=== PATIENT | female | born 1995 | race American Indian/Alaskan Native ===

== ENCOUNTER 2018-09-09 20:50 | Emergency (ER) | payer BC ==
[2018-09-09 21:02] VITALS: BP 128/80
--- NOTE | 2018-09-09 21:03 | Emergency Department Report ---
Chief Complaint: Chest Pain Stated Complaint: SOB HEAVY CHEST COUGH Time Seen by Provider: 09/09/18 20:58 - HPI History of Present Illness: Pt is c/o cough for approximately a month clear sputum production chest discomfort when coughing, rhinorrhea, and congestion, watery eyes no fever (+) seasonal allergies no PMHx VSS MSE complete MSE screening note: Focused history and physical exam performed. Due to findings the following was ordered: CXR ED Disposition for MSE Condition: Stable
[2018-09-09] MEDS ORDERED: PROVENTIL IH ONE (21:33)
[2018-09-09] MEDS ORDERED: IBUPROFEN PO ONE (21:33)
[2018-09-09] MEDS ORDERED: DECADRON IM ONE (21:33)
--- NOTE | 2018-09-09 21:33 | XRay Report ---
XR CHEST ROUTINE 2V CLINICAL INDICATION: Female, 23 years of age. cough COMPARISON: None available. Findings: Frontal and lateral views of the chest were obtained. Cardiac silhouette is within normal limits. No focal consolidation or effusion. No pneumothorax. Visualized bony structures are grossly intact. IMPRESSION: No acute findings. This document is electronically signed by Jess Cedillo DO., September 09 2018 09:31:08 PM ET
--- NOTE | 2018-09-09 21:39 | Emergency Department Report ---
Upper Respiratory HPI - HPI Chief Complaint: Chest Pain Stated Complaint: SOB HEAVY CHEST COUGH Time Seen by Provider: 09/09/18 20:58 Duration: 1 month URI Symptoms: Rhinorrhea: Yes, Sore Throat: Yes, Ear Pain: No, Cough: Yes, Shortness of Breath: No, Sick Contacts: No, Unable to Take Fluids: No, Urine Output Abnormal: No, Listless Behavior: No Other History: pt presents head congestion cough productive clear yellow noc wheezing x 1 months hx of bronchitis out of medications pt denies fever or chills no n/v no sob back pain no dizziness no light headedness - Home Meds and Allergies Home Medications: Previous Rx's Medication Instructions Recorded Last Taken Type ALBUTEROL Inhaler(NF) [VENTOLIN 2 puff IH Q4H PRN #1 inha 09/09/18 Unknown Rx Inhaler(NF)] Azithromycin [Zithromax Z-LATRELL] 250 mg PO DAILY #6 tab 09/09/18 Unknown Rx Benzonatate [Tessalon Perle] 100 mg PO TID PRN #30 capsule 09/09/18 Unknown Rx Ibuprofen 800 mg PO TID PRN #30 tablet 09/09/18 Unknown Rx Allergies/Adverse Reactions: Allergies Allergy/AdvReac Type Severity Reaction Status Date / Time No Known Allergies Allergy Verified 09/09/18 20:53 ED Review of Systems ROS: Stated complaint: SOB HEAVY CHEST COUGH Other details as noted in HPI Constitutional: denies: chills, fever Eyes: denies: eye pain, eye discharge, vision change ENT: throat pain, congestion. denies: ear pain Respiratory: cough, wheezing Cardiovascular: denies: chest pain, palpitations Endocrine: no symptoms reported Gastrointestinal: denies: abdominal pain, nausea, diarrhea Genitourinary: denies: urgency, dysuria, discharge Musculoskeletal: denies: back pain, joint swelling, arthralgia Skin: denies: rash, lesions Neurological: denies: headache, weakness, paresthesias Psychiatric: denies: anxiety, depression Hematological/Lymphatic: denies: easy bleeding, easy bruising ED Past Medical Hx - Past Medical History Previous Medical History?: No - Surgical History Past Surgical History?: No - Social History Smoking Status: Never Smoker Substance Use Type: Alcohol - Medications Home Medications: Home Medications Medication Instructions Recorded Confirmed Last Taken Type ALBUTEROL Inhaler(NF) [VENTOLIN 2 puff IH Q4H PRN #1 inha 09/09/18 Unknown Rx Inhaler(NF)] Azithromycin [Zithromax Z-LATRELL] 250 mg PO DAILY #6 tab 09/09/18 Unknown Rx Benzonatate [Tessalon Perle] 100 mg PO TID PRN #30 capsule 09/09/18 Unknown Rx Ibuprofen 800 mg PO TID PRN #30 tablet 09/09/18 Unknown Rx ED Bronchiolitis Physical Exam - Exam General: Vital signs noted. No distress. Alert and acting appropriately. HEENT: Yes Pharyngeal Erythema, Yes Rhinorrhea (clear ), No Conjuctival Injection, No Dry Mucous Membranes Ear: Neither TM Bulge, Neither TM Erythema, Neither EAC Discharge Neck: No Adenopathy, No Rigidity Lungs: Yes Good Air Exchange, Yes Wheezes, Yes Cough, No Clear Lung Sounds, No Stridor, No Nasal Flaring, No Retractions, No Use of Accessory Muscles Heart: Yes Regular, No Murmur Abdomen: Yes Normal Bowel Sounds, No Tenderness, No Peritoneal Signs Skin: No Rash, No Eczema Neurologic: Alert and oriented, no deficits. Musculoskeletal: Unremarkable. ED Bronchiolitis Tests - Testing Testing: CXR: Normal/Negative Treatments - Treaments Treatment: Improved Albuterol (decadron, ibuprofen, ) ED Physical Exam - General Limitations: No Limitations General appearance: alert, in no apparent distress - Head Head exam: Present: atraumatic, normocephalic - Eye Eye exam: Present: normal appearance, PERRL, EOMI Pupils: Present: normal accommodation - ENT ENT exam: Present: normal orophraynx, mucous membranes moist, TM's normal bilaterally, normal external ear exam - Expanded ENT Exam Expanded Ear exam: Present: normal external inspection Mouth exam: Absent: trismus Throat exam: Positive: normal inspection, other (uvula midline no stridor no lesion no exudate ). Negative: tonsillar erythema, tonsillomegaly, tonsillar exudate, R peritonsillar mass, L peritonsillar mass - Neck Neck exam: Present: normal inspection, full ROM. Absent: tenderness, meningismus, lymphadenopathy, thyromegaly - Respiratory Respiratory exam: Present: normal lung sounds bilaterally, wheezes (mild exp wheezing bilat anterior lobes ). Absent: respiratory distress, stridor, chest wall tenderness, accessory muscle use, decreased breath sounds, prolonged expiratory - Cardiovascular Cardiovascular Exam: Present: regular rate, normal rhythm, normal heart sounds. Absent: systolic murmur, diastolic murmur, rubs, gallop - GI/Abdominal GI/Abdominal exam: Present: soft, normal bowel sounds. Absent: tenderness, bruit, hernia - Rectal Rectal exam: Present: deferred - Extremities Exam Extremities exam: Present: normal inspection - Back Exam Back exam: Present: normal inspection, full ROM. Absent: tenderness, CVA tenderness (R), CVA tenderness (L), muscle spasm, paraspinal tenderness, vertebral tenderness, rash noted - Neurological Exam Neurological exam: Present: alert, oriented X3 - Psychiatric Psychiatric exam: Present: normal affect, normal mood - Skin Skin exam: Present: warm, dry, intact, normal color. Absent: rash ED Course Vital Signs 09/09/18 20:57 Temperature 98.6 F Pulse Rate 73 Respiratory 18 Rate Blood Pressure 128/80 O2 Sat by Pulse 100 Oximetry ED Medical Decision Making - Radiology Data Radiology results: image reviewed no infiltrates no opacities - Medical Decision Making this is bronchitis with cough for past month, cxr normal will tx cough with zpack plan: albuterol inhaler, tessalon pearls, ibuprofen, zpack , pt will follow up with pcp in 2-3 days return to ed if symptoms worsen, pt verbalized agreement and understanding of same. Critical care attestation.: If time is entered above; I have spent that time in minutes in the direct care of this critically ill patient, excluding procedure time. ED Disposition Clinical Impression: Bronchitis Disposition: DC-01 TO HOME OR SELFCARE Is pt being admited?: No Does the pt Need Aspirin: No Condition: Stable Instructions: Chronic Bronchitis (ED), Acute Bronchitis (ED), Upper Respiratory Infection (ED) Prescriptions: ALBUTEROL Inhaler(NF) [VENTOLIN Inhaler(NF)] 2 puff IH Q4H PRN #1 inha PRN Reason: shortness or breath wheezing Azithromycin [Zithromax Z-LATRELL] 250 mg PO DAILY #6 tab Benzonatate [Tessalon Perle] 100 mg PO TID PRN #30 capsule PRN Reason: Cough Ibuprofen 800 mg PO TID PRN #30 tablet PRN Reason: pain fever Referrals: PRIMARY CARE, [Primary Care Provider] - 3-5 Days Forms: Work/School Release Form(ED) Time of Disposition: 21:47
== END 2018-09-09 22:42 | disposition home or self-care (01) ==
LOC: ED 20:50
DX: J40 Bronchitis, not specified as acute or chronic (principal)
CPT/HCPCS: 71046; 96372; 99283; J1100

== ENCOUNTER 2020-08-28 08:35 | Emergency (ER) | payer BC ==
[2020-08-28 08:49] VITALS: BP 127/59
--- NOTE | 2020-08-28 08:58 | Emergency Department Report ---
ED General Adult HPI - General Chief complaint: Rectal Pain Stated complaint: POSSIBLE HEMPHOIDS Time Seen by Provider: 08/28/20 08:54 Source: patient Mode of arrival: Ambulatory Limitations: No Limitations - History of Present Illness Initial comments: 25-year-old female with no significant past medical history presenting with chief complaint of rectal pain. She states this began gradually over the past week and has worsened. She states that now when she has a bowel movement she notices a small amount of bleeding on the stool and on the toilet paper. Denies any significant abdominal pain, fevers, nausea, vomiting, anal trauma. Denies any prior history of similar. Pain is severe at times. States she has been trying to not have a bowel movement to avoid the pain. - Related Data Previous Rx's Medication Instructions Recorded Last Taken Type ALBUTEROL Inhaler(NF) [VENTOLIN 2 puff IH Q4H PRN #1 inha 09/09/18 Unknown Rx Inhaler(NF)] Azithromycin [Zithromax Z-LATRELL] 250 mg PO DAILY #6 tab 09/09/18 Unknown Rx Benzonatate [Tessalon Perle] 100 mg PO TID PRN #30 capsule 09/09/18 Unknown Rx Ibuprofen [Ibuprofen 800] 800 mg PO TID PRN #30 tablet 09/09/18 Unknown Rx Sulfamethoxazole/Trimethoprim 1 each PO BID #14 tablet 03/30/20 Unknown Rx [Bactrim DS TAB] Docusate Sodium [Colace] 100 mg PO BID #20 capsule 08/28/20 Unknown Rx Hydrocortisone [Anucort-HC SUPPOS] 25 mg RC BID #14 supp.rect 08/28/20 Unknown Rx traMADoL [Ultram 50 MG tab] 50 mg PO Q6HR PRN #10 tablet 08/28/20 Unknown Rx Allergies Allergy/AdvReac Type Severity Reaction Status Date / Time No Known Allergies Allergy Verified 09/09/18 20:53 ED Review of Systems ROS: Stated complaint: POSSIBLE HEMPHOIDS Other details as noted in HPI Comment: All other systems reviewed and negative Gastrointestinal: as per HPI ED Past Medical Hx - Past Medical History Previous Medical History?: Yes Additional medical history: bronchitis - Surgical History Past Surgical History?: No - Social History Smoking Status: Never Smoker Substance Use Type: Marijuana - Medications Home Medications: Home Medications Medication Instructions Recorded Confirmed Last Taken Type ALBUTEROL Inhaler(NF) [VENTOLIN 2 puff IH Q4H PRN #1 inha 09/09/18 Unknown Rx Inhaler(NF)] Azithromycin [Zithromax Z-LATRELL] 250 mg PO DAILY #6 tab 09/09/18 Unknown Rx Benzonatate [Tessalon Perle] 100 mg PO TID PRN #30 capsule 09/09/18 Unknown Rx Ibuprofen [Ibuprofen 800] 800 mg PO TID PRN #30 tablet 09/09/18 Unknown Rx Sulfamethoxazole/Trimethoprim 1 each PO BID #14 tablet 03/30/20 Unknown Rx [Bactrim DS TAB] Docusate Sodium [Colace] 100 mg PO BID #20 capsule 08/28/20 Unknown Rx Hydrocortisone [Anucort-HC SUPPOS] 25 mg RC BID #14 supp.rect 08/28/20 Unknown Rx traMADoL [Ultram 50 MG tab] 50 mg PO Q6HR PRN #10 tablet 08/28/20 Unknown Rx ED Physical Exam - General Limitations: No Limitations General appearance: alert, in no apparent distress - Head Head exam: Present: atraumatic, normocephalic - Eye Eye exam: Present: normal appearance - ENT ENT exam: Present: mucous membranes moist - Neck Neck exam: Present: normal inspection - Respiratory Respiratory exam: Present: normal lung sounds bilaterally. Absent: respiratory distress - Cardiovascular Cardiovascular Exam: Present: regular rate, normal rhythm. Absent: systolic murmur, diastolic murmur, rubs, gallop - GI/Abdominal GI/Abdominal exam: Present: soft, normal bowel sounds. Absent: distended, tenderness, guarding, rebound - Rectal Rectal exam: Present: other (Internal hemorrhoid, no sign of anal fissure or perianal abscess, no active bleeding noted, sophia Stafford RN) - Extremities Exam Extremities exam: Present: normal inspection - Back Exam Back exam: Present: normal inspection - Neurological Exam Neurological exam: Present: alert, oriented X3 - Psychiatric Psychiatric exam: Present: normal affect, normal mood - Skin Skin exam: Present: warm, dry, intact, normal color. Absent: rash ED Course Vital Signs 08/28/20 08:45 Temperature 98.1 F Pulse Rate 73 Respiratory 18 Rate Blood Pressure 127/59 O2 Sat by Pulse 99 Oximetry ED Medical Decision Making - Medical Decision Making Patient presents with rectal pain, a small amount of bleeding noted when wiping and on stool ongoing for almost 1 week, bleeding for the past couple days. On my exam, chaperoned by Nydia FRANKLIN, no external hemorrhoid is noted though internal hemorrhoid is suspected, no sign of abscess, fissure or other complication. Will prescribe Anusol, pain medication, stool softener and refer to GI for follow-up. Return precautions were given. - Differential Diagnosis Hemorrhoid, fissure, abscess Critical care attestation.: If time is entered above; I have spent that time in minutes in the direct care of this critically ill patient, excluding procedure time. ED Disposition Clinical Impression: Internal hemorrhoids Disposition: TO HOME OR SELFCARE Is pt being admited?: No Condition: Good Instructions: Hemorrhoids Prescriptions: Hydrocortisone [Anucort-HC SUPPOS] 25 mg RC BID #14 supp.rect Docusate Sodium [Colace] 100 mg PO BID #20 capsule traMADoL [Ultram 50 MG tab] 50 mg PO Q6HR PRN #10 tablet PRN Reason: Pain Referrals: KATEY VELIZ MD [Staff Physician] - 3-5 Days Time of Disposition: 08:57
== END 2020-08-28 09:03 | disposition home or self-care (01) ==
LOC: ED 08:35
DX: K64.8 Other hemorrhoids (principal); F12.10 Cannabis abuse, uncomplicated; Z79.1 Long term (current) use of non-steroidal anti-inflammatories (NSAID); Z79.2 Long term (current) use of antibiotics; Z79.899 Other long term (current) drug therapy
CPT/HCPCS: 99282